=== PATIENT | female | born 2000 | race Caucasian/White ===

== ENCOUNTER 2020-08-12 09:15 | Outpatient (REF) | payer OTHER, SELFPAY | END 2020-08-12 09:16 | disposition home or self-care (01) | LOC: HO.LAB 09:15 | PROVIDERS: Visit Provider Internal Medicine | DX: Z20.828 Contact with and (suspected) exposure to other viral communicable diseases (principal) | CPT/HCPCS: C9803; U0003 ==

== ENCOUNTER 2021-07-20 14:27 | Outpatient (REF) | payer OTHER, SELFPAY ==
[2021-07-20 14:56] LABS: COVID-19 Test Negative (Negative)
== END 2021-07-20 14:28 | disposition home or self-care (01) ==
LOC: HO.LAB 14:27
PROVIDERS: Visit Provider Internal Medicine
DX: Z20.822 Contact with and (suspected) exposure to COVID-19 (principal)
CPT/HCPCS: 36415; 87635; C9803

== ENCOUNTER 2021-10-18 09:53 | Outpatient (REF) | payer OTHER, SELFPAY ==
[2021-10-18 13:37] LABS: Binax Internal Control QC Valid; Binax Now Covid-19 Ag Negative (Negative)
== END 2021-10-18 09:54 | disposition home or self-care (01) ==
LOC: HO.LAB 09:53
PROVIDERS: Visit Provider Internal Medicine
DX: Z20.822 Contact with and (suspected) exposure to COVID-19 (principal)
CPT/HCPCS: C9803

== ENCOUNTER 2021-10-21 12:42 | Outpatient (REF) | payer OTHER, SELFPAY ==
[2021-10-21 13:31] LABS: Binax Internal Control QC Valid; Binax Lot number: 9864; Binax Now Covid-19 Ag Positive (Negative)
== END 2021-10-21 12:43 | disposition home or self-care (01) ==
LOC: HO.LAB 12:42
PROVIDERS: Visit Provider Internal Medicine
DX: Z20.822 Contact with and (suspected) exposure to COVID-19 (principal)
CPT/HCPCS: C9803

== ENCOUNTER 2022-01-25 15:03 | Outpatient (REF) | payer OTHER, SELFPAY ==
[2022-01-25 16:00] LABS: COVID-19 Test Negative (Negative)
== END 2022-01-25 15:04 | disposition home or self-care (01) ==
LOC: HO.LAB 15:03
PROVIDERS: Visit Provider Internal Medicine
DX: Z20.822 Contact with and (suspected) exposure to COVID-19 (principal)
CPT/HCPCS: 87635; C9803

== ENCOUNTER 2022-03-22 18:26 | Emergency (ER) | payer OTHER, SELFPAY ==
--- NOTE | ~2022-03-22 | XR_ITS ---
EXAMINATION: XR CHEST CLINICAL INFORMATION: Chest pain COMPARISON: None TECHNIQUE: 2 views of the chest were obtained. FINDINGS: The heart and mediastinum are normal. No mass or adenopathy. No edema. The lungs are clear. No consolidation, effusion or pneumothorax. Normal lung volumes. Normal gas pattern without free air or obstruction. No fracture. XR/XR chest 2V IMPRESSION: No acute cardiopulmonary process detected.
[2022-03-22 19:04] VITALS: BP 126/68; PULSE 93; RESP 18; TEMP 36.6; O2SAT 98; BMI 39.6
[2022-03-22 19:55] LABS: MANUAL DIFF FLAG NO
[2022-03-22 19:56] LABS: Basophils Percent Auto 0.2 % (0-2); Eosinophils Absolute Auto 0.1 X10*3/uL (0.0-0.4); Eosinophils Percent Auto 0.9 % (0-4); Hematocrit 41.7 % (37.0-47.0); Hemoglobin 13.5 g/dl (12.0-16.0); Imm Gran Abs Auto 0.02 X10*3/uL (0.00-0.03); Imm Gran Pct Auto 0.2 % (0.0-0.4); Lymphocytes Absolute Auto 2.7 X10*3/uL (1.2-4.9); Lymphocytes Percent Auto 31.2 % (20-40); Mean Corpuscular HGB Conc 32.4 g/dl (31.0-35.0); Mean Corpuscular Hemoglobin 28.2 pg (27.0-33.0); Mean Corpuscular Volume 87.1 fL (80.0-98.0); Mean Platelet Volume 10.6 fL (9.4-12.3); Monocytes Absolute Auto 0.6 X10*3/uL (0.1-1.2); Monocytes Percent Auto 6.9 % (2-11); Neutrophils Absolute Auto 5.2 x10*3/uL (2.0-8.3); Neutrophils Percent Auto 60.6 % (45-73); Platelet Count 281 X10*3/uL (160-400); Red Blood Count 4.79 X10*6/uL (4.20-5.50); Red Cell Distribution Width 13.4 % (11.0-16.0); White Blood Count 8.5 X10*3/uL (4.8-10.8)
[2022-03-22 19:58] LABS: Appearance Urine CLEAR; Color Urine YELLOW; Glucose Urine UA NEG (NEG); Leukocyte Esterase Urine NEG (NEG); Nitrite Urine NEG (NEG); Specific Gravity - Urine >= 1.030 (1.005-1.025); Urine Blood NEG (NEG); Urine Ketones 5 MG/DL (NEG); Urine Protein NEG (NEG-TRACE)
[2022-03-22 19:59] LABS: UPreg QC Valid YES; Urine Pregnancy NEGATIVE (NEGATIVE)
--- NOTE | 2022-03-22 19:59 | ED_ITS ---
HPI - General Adult General Chief complaint: General Medical Stated complaint: lump under breast right side and pain Time Seen by Provider: 03/22/22 19:29 Source: patient Mode of arrival: ambulatory Limitations: no limitations History of Present Illness HPI narrative: 21-year-old female previously healthy here with reports of bump to right chest wall x 2 weeks. no fevers, chills, shortness of breath, cough. No recent flu-like symptoms. Patient tells me she was seen at [facility] and told she has chest wall inflammation. Patient here for continued symptoms. Related Data Allergies Allergy/AdvReac Type Severity Reaction Status Date / Time No Known Allergies Allergy Verified 03/22/22 19:04 Review of Systems Review of Systems: Yes all other systems are reviewed and are negative Constitutional: Constitutional: Reports no additional constitutional complaints, Denies body ache(s), Denies chills, Denies fever(s), Denies headache(s) and Denies weakness Eyes: Eyes: Reports no additional eye complaints and Denies change in vision ENT: Reports system reviewed and no additional complaints, except as documented, Denies dizziness, Denies headache(s), Denies nasal congestion, Denies nasal discharge and Denies neck pain Cardiovascular: Cardiovascular: Reports no additional cardiovascular complaints, Denies chest pain, Denies leg edema and Denies dyspnea Respiratory: Respiratory: Reports no additional respiratory complaints, Denies cough and Denies dyspnea Gastrointestinal: Gastrointestinal: Reports no additional gastrointestinal complaints, Denies abdominal pain, Denies diarrhea, Denies nausea and Denies vomiting Genitourinary: Genitourinary: Reports no additional female genitourinary complaints and Denies urinary incontinence Musculoskeletal: Musculoskeletal: Reports no additional musculoskeletal complaints, Denies back pain, Denies arthralgias, Denies joint swelling, Denies neck pain, Denies numbness and Denies tingling Integumentary/Breasts: Skin/Breast: Reports system reviewed and no additional complaints, except as docu and Denies rash Neurologic: Reports system reviewed and no additional complaints, except as documented, Denies dizziness, Denies headache(s), Denies numbness, Denies tingling and Denies weakness PMFSH Past Medical History Attestation statement: The following information was validated with the patient. Source: old records reviewed and nursing notes reviewed Social History Social History Advance Directives: No Advance Directives Information Provided: No Physical Exam ED Vital Signs: Vital Signs - 24 hr 03/22/22 19:04 Temperature 97.9 F Pulse Rate 93 Respiratory Rate 18 Blood Pressure 126/68 Pulse Oximetry 98 Oxygen Delivery Method Room Air BMI result Body Mass Index 39.6 Const General: cooperative, healthy appearing, comfortable and no acute distress Orientation/consciousness: patient oriented x3 Limitations: no limitations HENMT Head: Yes normal to inspection Ears: hearing grossly normal bilaterally General nose exam: Normal external nose present Face and sinus: Yes normal facial exam Mouth: Normal oral and palatal mucosa present Eyes General: appearance normal, both eyes and all related structures Pupils: Equal, round and reactive pupils present Neck Neck: Yes normal visual inspection Chest Chest palpation & inspection: normal inspection of the chest Breast/axilla palpation: axillary lymphadenopathy right pectoral (anterior) adenopathy (single <1cm-tender, mobile , firm-no erythema/fluctuance/induration) Neuro General: patient oriented x3 Cranial nerves: Yes Equal, round and reactive pupils present Course Course Course Narrative: 21 yo female here with bump to right chest wall x 2 weeks with no other complaints. On exam patient has single node that is tender, firm, mobile and <1cm. NO erythema/warmth or fluctuance or induration. No obvious soft tissue infections on exam. No recent flu like symptoms, weight loss, night sweats concerning for malignancy. Patient denies breast lumps/lesions or tenderness. No family history of breast cancer. Will check labs, CXR. if normal close outpatient observation by PCP Reevaluation(s) Reevaluation #1: Labs are unremarkable. Chest x-ray shows no acute finding. Patient should monitor the site and follow up with her primary care doctor within 2 weeks for resolution. Reviewed worrisome signs and symptoms such as fever, weight loss, night sweats and when to return to the emergency department. Comfortable discharge home. Time: 20:50 Medical Decision Making Medical Records Medical records reviewed: Yes I reviewed the patient's medical records. Lab Data Result diagrams: 03/22/22 19:41 03/22/22 19:41 Labs: Lab Results 03/22/22 03/22/22 03/22/22 Range/Units 19:41 19:41 19:41 WBC 8.5 (4.8-10.8) X10*3/uL RBC 4.79 (4.20-5.50) X10*6/uL Hgb 13.5 (12.0-16.0) g/dl Hct 41.7 (37.0-47.0) % MCV 87.1 (80.0-98.0) fL MCH 28.2 (27.0-33.0) pg MCHC 32.4 (31.0-35.0) g/dl RDW 13.4 (11.0-16.0) % Plt Count 281 (160-400) X10*3/uL MPV 10.6 (9.4-12.3) fL Immature Gran % (Auto) 0.2 (0.0-0.4) % Neut % (Auto) 60.6 (45-73) % Lymph % (Auto) 31.2 (20-40) % [place] % (Auto) 6.9 (2-11) % Eos % (Auto) 0.9 (0-4) % Baso % (Auto) 0.2 (0-2) % Lymph # (Auto) 2.7 (1.2-4.9) X10*3/uL [place] # (Auto) 0.6 (0.1-1.2) X10*3/uL Eos # (Auto) 0.1 (0.0-0.4) X10*3/uL Baso # (Auto) 0.0 (0.0-0.2) X10*3/uL Abs Immat Gran (auto) 0.02 (0.00-0.03) X10*3/uL Absolute Neuts (auto) 5.2 (2.0-8.3) x10*3/uL Absolute Nucleated RBC 0.000 (0.0-0.012) X10*3/uL Nucleated RBC % (auto) 0.0 (0.0-0.2) /100WBC Sodium 140 (135-145) mmol/L Potassium 3.8 (3.3-5.1) mmol/L Chloride 104 (96-108) mmol/L Carbon Dioxide 28 (22-29) mmol/L Anion Gap 12 (12-20) BUN 13 (9-16) mg/dL Creatinine 0.77 (0.5-1.4) mg/dL Estim Creat Clear Calc 120.8 Estimated GFR > 60 Random Glucose 80 (60-115) mg/dL Calcium 9.3 (8.4-10.2) mg/dL Urine Color YELLOW Urine Appearance CLEAR Urine pH 6.0 (5.0-8.0) Ur Specific [place] >= 1.030 H (1.005-1.025) Urine Protein NEG (NEG-TRACE) MG/DL Urine Glucose (UA) NEG (NEG) MG/DL Urine Ketones 5 (NEG) MG/DL Urine Blood NEG (NEG) Urine Nitrite NEG (NEG) Ur Leukocyte Esterase NEG (NEG) Urine Test (NEGATIVE) 03/22/22 Range/Units 19:41 WBC (4.8-10.8) X10*3/uL RBC (4.20-5.50) X10*6/uL Hgb (12.0-16.0) g/dl Hct (37.0-47.0) % MCV (80.0-98.0) fL MCH (27.0-33.0) pg MCHC (31.0-35.0) g/dl RDW (11.0-16.0) % Plt Count (160-400) X10*3/uL MPV (9.4-12.3) fL Immature Gran % (Auto) (0.0-0.4) % Neut % (Auto) (45-73) % Lymph % (Auto) (20-40) % [place] % (Auto) (2-11) % Eos % (Auto) (0-4) % Baso % (Auto) (0-2) % Lymph # (Auto) (1.2-4.9) X10*3/uL [place] # (Auto) (0.1-1.2) X10*3/uL Eos # (Auto) (0.0-0.4) X10*3/uL Baso # (Auto) (0.0-0.2) X10*3/uL Abs Immat Gran (auto) (0.00-0.03) X10*3/uL Absolute Neuts (auto) (2.0-8.3) x10*3/uL Absolute Nucleated RBC (0.0-0.012) X10*3/uL Nucleated RBC % (auto) (0.0-0.2) /100WBC Sodium (135-145) mmol/L Potassium (3.3-5.1) mmol/L Chloride (96-108) mmol/L Carbon Dioxide (22-29) mmol/L Anion Gap (12-20) BUN (9-16) mg/dL Creatinine (0.5-1.4) mg/dL Estim Creat Clear Calc Estimated GFR Random Glucose (60-115) mg/dL Calcium (8.4-10.2) mg/dL Urine Color Urine Appearance Urine pH (5.0-8.0) Ur Specific [place] (1.005-1.025) Urine Protein (NEG-TRACE) MG/DL Urine Glucose (UA) (NEG) MG/DL Urine Ketones (NEG) MG/DL Urine Blood (NEG) Urine Nitrite (NEG) Ur Leukocyte Esterase (NEG) Urine Test NEGATIVE (NEGATIVE) Imaging Data Chest x-ray: Attestation: I personally reviewed and interpreted this imaging study as follows: Radiologist's impression: Launch?Image [place] [id number] XRay Report Signed Patient: Dmitry Parker MR#: [id number] : 09/12/2004 Acct:[id number] Age/Sex: 17 / M ADM Date: 03/22/22 Loc: .ED Attending Dr: Ordering Physician: Sergey Granda MD Date of Service: 03/22/22 Procedure(s): XR hand RT min 3V Accession Number(s): [id number] cc: Sergey Granda MD~ EXAMINATION: XR HAND, RIGHT CLINICAL INFORMATION: Pain and limited range of motion? COMPARISON: None? TECHNIQUE: PA, lateral, and oblique views of the right hand. FINDINGS: There is abnormal soft tissue swelling overlying the fifth metacarpal. No radiopaque foreign body or soft tissue gas. The bones are normally mineralized without fracture or dislocation.? XR/XR hand RT min 3V IMPRESSION: Abnormal soft tissue swelling over lateral aspect of right hand. Discharge Plan Discharge Clinical Impression: Axillary adenopathy Patient Disposition: Home, Self-Care Instructions: Lymphadenopathy (ED) Additional Instructions: you need to be seen by your primary care doctor within 2 weeks for recheck seek care for any fevers, weight loss, night sweats, breast lump or swelling warm compresses Motrin as needed Referrals: Physician,Unknown J [Primary Care Provider] - 2 weeks ( primary care without fail)
[2022-03-22 20:09] LABS: Anion Gap 12 (12-20); Blood Urea Nitrogen 13 mg/dL (9-16); Calcium 9.3 mg/dL (8.4-10.2); Carbon Dioxide 28 mmol/L (22-29); Chloride 104 mmol/L (96-108); Creatinine Clr Calc Pharmacy 120.8; Estimated Glomerular Filt Rate > 60; Glucose Random 80 mg/dL (60-115); Potassium 3.8 mmol/L (3.3-5.1); Sodium 140 mmol/L (135-145)
== END 2022-03-22 21:03 | disposition home or self-care (01) ==
PROVIDERS: Nurse Practitioner Family; Emergency Provider Emergency Medicine Emergency Medical Services
DX: R59.0 Localized enlarged lymph nodes (principal)
CPT/HCPCS: 36415; 71046; 80048; 81003; 81025; 85025; 99282; 99283

== ENCOUNTER 2022-05-03 14:53 | Emergency (ER) | payer OTHER, SELFPAY ==
[2022-05-03 16:43] VITALS: BP 111/65; PULSE 63; RESP 18; TEMP 36.7; O2SAT 99; BMI 39.9
--- NOTE | 2022-05-03 22:12 | ED_ITS ---
HPI - Nausea/Vomiting/Diarrhea General Chief complaint: Abdominal Pain Stated complaint: fever Time Seen by Provider: 05/03/22 18:17 Source: patient Mode of arrival: ambulatory Limitations: no limitations History of Present Illness HPI Narrative: Patient complaining of nausea abdominal cramps and diarrhea for last 2 weeks noticed had low-grade fever also patient has on a diarrhea 2 times a day which is watery no vomiting has some abdominal cramping no chills no running nose no cough Related Data Previous Rx's Medication Instructions Recorded loperamide 2 mg capsule (Imodium 2 mg PO Q6H PRN loose stool #10 05/04/22 A-D) caps Allergies Allergy/AdvReac Type Severity Reaction Status Date / Time No Known Allergies Allergy Verified 05/03/22 16:43 Review of Systems Review of Systems: Yes all other systems are reviewed and are negative [facility] Social History Social History Advance Directives: No Advance Directives Information Provided: No Physical Exam Vital Signs: Vital Signs: Last Vital Signs Temp 98.1 F 05/03/22 16:43 Pulse 68 05/04/22 00:00 Resp 18 05/04/22 00:00 BP 115/70 05/04/22 00:00 Pulse Ox 100 05/04/22 00:00 O2 Del Method 05/04/22 00:00 BMI result Body Mass Index 39.9 Appearance: Alert. Oriented X3. No acute distress. Eyes: PERRLA, No Nystagmus ENT: Pharynx normal. Oral Mucosa moist Neck: Normal inspection. Neck supple. CVS: Normal heart rate and rhythm. Pulses normal. Respiratory: No respiratory distress. Equal air entry bilateral, no wheezing/rales/rhonchi Abdomen: Soft and nontender. Bowel sounds are present, no mass palpable, no CVA tenderness Skin: Skin warm and dry. Normal skin color. Normal skin turgor. Extremities: No lower extremity edema. No calf tenderness Neuro: Oriented X 3. No motor deficit. MDM - Nausea/Vomiting/Diarrhea MDM Narrative Medical decision making narrative: Patient clinically stable nonspecific complaints very mild will get UA tested COVID is neg UA is negative patient is not taking p.o. fluid to discharge patient ho me on Imodium Lab Data Attestation: I reviewed the patient's lab results. Labs: Lab Results 05/03/22 05/04/22 05/04/22 Range/Units 22:56 00:19 00:20 Urine Color YELLOW Urine Appearance HAZY Urine pH 6.0 (5.0-8.0) Ur Specific [place] 1.025 (1.005-1.025) Urine Protein TRACE (NEG-TRACE) MG/DL Urine Glucose (UA) NEG (NEG) MG/DL Urine Ketones NEG (NEG) MG/DL Urine Blood NEG (NEG) Urine Nitrite NEG (NEG) Ur Leukocyte Esterase NEG (NEG) Urine Test NEGATIVE (NEGATIVE) COVID-19 (GREGG) Negative (Negative) COVID-19 Clin Com See Note Discharge Plan Discharge Clinical Impression: Gastroenteritis Patient Disposition: Home, Self-Care Instructions: Gastroenteritis (ED) Additional Instructions: Drink plenty of fluids Imodium as advised for severe diarrhea Follow with PCP Prescriptions: New loperamide [Imodium A-D] 2 mg capsule 2 mg PO Q6H PRN (Reason: loose stool) Qty: 10 0RF
[2022-05-03] MEDS: Ondansetron ODT 4 MG TAB.RAPDIS TRANSLINGU (22:52)
[2022-05-03] MEDS: Dicyclomine HCl 10 MG CAPSULE 20 MG PO (22:52)
[2022-05-03 23:27] VITALS: RESP 18
[2022-05-03 23:28] LABS: COVID-19 Test Negative (Negative); IDNOW Serial# 16C4AD1C
[2022-05-04] VITALS: BP 115/70; PULSE 68; RESP 18; O2SAT 100
[2022-05-04 00:40] LABS: Appearance Urine HAZY; Color Urine YELLOW; Glucose Urine UA NEG (NEG); Leukocyte Esterase Urine NEG (NEG); Nitrite Urine NEG (NEG); Specific Gravity - Urine 1.025 (1.005-1.025); Urine Blood NEG (NEG); Urine Ketones NEG (NEG); Urine Protein TRACE MG/DL (NEG-TRACE)
[2022-05-04 00:41] LABS: UPreg QC Valid YES; Urine Pregnancy NEGATIVE (NEGATIVE)
== END 2022-05-04 01:09 | disposition home or self-care (01) ==
PROVIDERS: Emergency Provider Internal Medicine
DX: K52.9 Noninfective gastroenteritis and colitis, unspecified (principal); Z20.822 Contact with and (suspected) exposure to COVID-19
CPT/HCPCS: 81003; 81025; 87635; 99283; 99284

== ENCOUNTER 2022-09-19 16:15 | Emergency (ER) | payer OTHER, SELFPAY ==
--- NOTE | ~2022-09-19 | XR_ITS ---
EXAMINATION: XR CHEST CLINICAL INFORMATION: Chest pain COMPARISON: None TECHNIQUE: 2 views of the chest were obtained. FINDINGS: No significant abnormality is noted involving the heart, lungs, mediastinum, bony thorax or soft tissues. XR/XR chest 2V IMPRESSION: Unremarkable examination.
[2022-09-19 17:38] VITALS: BP 128/70; PULSE 76; RESP 18; TEMP 36.8; O2SAT 100; BMI 39.6
--- NOTE | 2022-09-19 17:42 | ED_ITS ---
HPI - Chest Pain General Chief Complaint: Fever <EVERTON Patton - Last Filed: 09/19/22 17:45> Stated Complaint: Chest pain/fever <EVERTON Patton - Last Filed: 09/19/22 17:45> Time Seen by Provider: 09/19/22 18:47 <EVERTON Patton - Last Filed: 09/19/22 17:45> Source: patient and family (Mother) <Delilah Harrington MD - Last Filed: 09/19/22 21:07> Mode of arrival: ambulatory <Delilah Harrington MD - Last Filed: 09/19/22 21:07> Limitations: no limitations <Delilah Harrington MD - Last Filed: 09/19/22 21:07> History of Present Illness HPI narrative: 22-year-old female came in for evaluation of right-sided chest pain for 1 week, patient describes the pain as constant pain is worse with taking a deep breath or twisting her body, no relieving factor, pain is moderate 5/10, no radiation, no lower extremity swelling, patient just traveled from [place] recently, no history of PE or DVT in the past. No upper respiratory symptoms. <Delilah Harrington MD - Last Filed: 09/19/22 21:07> Related Data Home Medications: Previous Rx's Medication Instructions Recorded loperamide 2 mg capsule (Imodium 2 mg PO Q6H PRN loose stool #10 05/04/22 A-D) caps ibuprofen 100 mg/5 mL oral 200 mg (10 mL) PO Q6H PRN pain 09/19/22 suspension (Children's Motrin) #120 mL <EVERTON Patton - Last Filed: 09/19/22 17:45> Allergies/Adverse Reactions: Allergies Allergy/AdvReac Type Severity Reaction Status Date / Time No Known Allergies Allergy Verified 05/03/22 16:43 <EVERTON Patton - Last Filed: 09/19/22 17:45> Review of Systems Review of Systems: All other systems are reviewed and are negative Constitutional: Reports as per HPI and Reports no additional constitutional complaints Eyes: Reports as per HPI and Reports no additional eye complaints Reports system reviewed and no additional complaints, except as documented Cardiovascular: Reports as per HPI and Reports no additional cardiovascular complaints Respiratory: Reports as per HPI and Reports no additional respiratory complaints Gastrointestinal: Reports as per HPI and Reports no additional gastrointestinal complaints Genitourinary: Reports no additional female genitourinary complaints Musculoskeletal: Reports no additional musculoskeletal complaints Skin/Breast: Reports system reviewed and no additional complaints, except as docu Psychiatric: Reports no additional psychiatric complaints Endocrine: Reports no additional endocrine complaints Hematologic/Lymphatic: Reports no additional hematologic/lymphatic complaints Allergic/Immunologic: Reports no additional allergic/immunologic complaints Reports system reviewed and no additional complaints, except as documented and Reports Abnormal speech present <Delilah Harrington MD - Last Filed: 09/19/22 21:07> [facility] Social History Social History: Social History Advance Directives: No Advance Directives Information Provided: No <EVERTON Patton - Last Filed: 09/19/22 17:45> Physical Exam Vital Signs: Vital Signs: Last Vital Signs Temp 98.3 F 09/19/22 17:38 Pulse 73 09/19/22 18:53 Resp 18 09/19/22 18:53 BP 105/65 09/19/22 18:53 Pulse Ox 100 09/19/22 18:53 O2 Del Method 09/19/22 18:53 BMI result Body Mass Index 39.6 <EVERTON Patton - Last Filed: 09/19/22 17:45> Vital Signs: Last Vital Signs Temp 98.3 F 09/19/22 17:38 Pulse 73 09/19/22 18:53 Resp 18 09/19/22 18:53 BP 105/65 09/19/22 18:53 Pulse Ox 100 09/19/22 18:53 O2 Del Method 09/19/22 18:53 BMI result Body Mass Index 39.6 Vital signs have been reviewed as appeared to be correct. Blood pressure normal. Heart rate normal. Respiration rate normal. Temperature normal. Oxygen saturation normal. <Delilah Harrington MD - Last Filed: 09/19/22 21:07> Appearance: Alert. Oriented X3. No acute distress. Head: Normal external exam. Normocephalic. Atraumatic. No [place] signs noted. No raccoon eyes noted Eyes: PERRLA. EOMI. Conjunctiva and sclera normal. Eyelids normal. ENT: TM's Normal. Pharynx normal. Uvula midline. Moist mucous membranes. No trismus noted. No drooling noted. No muffled voice noted. Neck: Normal inspection. Neck supple. FROM. No adenopathy. Thyroid Normal. No meningeal signs. No neck mass noted. CVS: Normal heart rate and rhythm. Heart sound normal. No murmurs noted. Pulses normal throughout. Respiratory: No respiratory distress. Painless inspiration. Breath sounds normal. No wheezes/rales/rhonchi noted. Right chest wall point of reproducible tenderness. No accessory muscle usage noted or decreased air movement noted. Abdomen: Soft and nontender. Bowel sounds normal in all 4 quadrants. No distention noted. No organomegaly noted. No visible injury noted. Back: No CVA tenderness. Full range of motion noted. Skin: Skin warm and dry. Normal skin color. Normal skin turgor. No rashes/lesions/lacerations noted. Extremities: No lower extremity edema. Extremities exhibit normal range of motion. Extremities nontender. Neuro: Oriented X 3. Cranial nerve exam: II-XII are grossly intact No motor deficit. No sensory deficit. Reflexes normal. <Delilah Harrington MD - Last Filed: 09/19/22 21:07> Course Course Course Narrative: 17:45pm - 22yoF c No Sig PMHx who recently traveled to [place] and returned 1 week ago is presenting to the ER with midsternal chest pain with associated shortness of breath and fevers for the past week. Denies any other recent travel. Is not on control. Denies any surgery or history of DVT or PE or hypercoagulation disorder or any estrogen usage. Denies any dizziness, ear pain, sore throat, cough, palpitations, abdominal pain, leg swelling or any other symptoms complaints or concerns at this time. Plan: Labs, EKG, chest x-ray. Patient is stable vital signs are stable. Patient will be sent back to the waiting room for further evaluation treatment emergency department. <EVERTON Patton - Last Filed: 09/19/22 17:45> Reevaluation(s) Reevaluation #1: Right-sided chest wall pain with point of reproducible tenderness, patient at low risk for PE was negative D-dimer, unremarkable chest x-ray and EKG, stable vital signs with no tachypnea or hypoxia, will reassure the patient use NSAIDs p.r.n. pain. <Delilah Harrington MD - Last Filed: 09/19/22 21:07> Time: 21:03 <Delilah Harrington MD - Last Filed: 09/19/22 21:07> Medical Decision Making Differential Diagnosis Differential Diagnoses: The differential diagnosis associated with the presentation includes (PE/chest wall pain/cardiac related pain/pneumonia.) <Delilah Harrington MD - Last Filed: 09/19/22 21:07> Lab Data Result Diagrams: : 09/19/22 18:29 09/19/22 18:29 <EVERTON Patton - Last Filed: 09/19/22 17:45> Labs: Lab Results 09/19/22 09/19/22 09/19/22 Range/Units 18:17 18:29 18:29 PT 11.2 (10.0-13.1) SEC INR 1.0 (0.9-1.1) D-Dimer High Sensitivty < 150 NG/ML Sodium 140 (135-145) mmol/L Potassium 4.0 (3.3-5.1) mmol/L Chloride 106 (96-108) mmol/L Carbon Dioxide 24 (22-29) mmol/L Anion Gap 14 (12-20) BUN 11 (9-16) mg/dL Creatinine 0.79 (0.5-1.4) mg/dL Estim Creat Clear Calc 116.7 Estimated GFR > 60 Random Glucose 90 (60-115) mg/dL Calcium 9.7 (8.4-10.2) mg/dL Magnesium 1.9 (1.6-2.6) mg/dL Total Bilirubin 0.3 (0.0-1.0) mg/dL AST 26 (5-31) U/L ALT 29 (0-31) U/L Alkaline Phosphatase 103 (39-117) U/L Troponin I High Sens (<3.5-17.0) ng/L B-Natriuretic Peptide (<100) pg/mL Total Protein 8.1 H (6.5-8.0) g/dL Albumin 4.4 (3.5-5.0) g/dL Beta HCG, Quant mIU/mL Influenza Type A (PCR) NEGATIVE (Negative) Influenza Type B (PCR) NEGATIVE (Negative) RSV RNA Qual (PCR) NEGATIVE (Negative) SARS-CoV-2 RNA (RT-PCR) NEGATIVE (Negative) 09/19/22 09/19/22 09/19/22 Range/Units 18:29 18:34 18:34 PT (10.0-13.1) SEC INR (0.9-1.1) D-Dimer High Sensitivty NG/ML Sodium (135-145) mmol/L Potassium (3.3-5.1) mmol/L Chloride (96-108) mmol/L Carbon Dioxide (22-29) mmol/L Anion Gap (12-20) BUN (9-16) mg/dL Creatinine (0.5-1.4) mg/dL Estim Creat Clear Calc Estimated GFR Random Glucose (60-115) mg/dL Calcium (8.4-10.2) mg/dL Magnesium (1.6-2.6) mg/dL Total Bilirubin (0.0-1.0) mg/dL AST (5-31) U/L ALT (0-31) U/L Alkaline Phosphatase (39-117) U/L Troponin I High Sens < 3.5 (<3.5-17.0) ng/L B-Natriuretic Peptide < 10 (<100) pg/mL Total Protein (6.5-8.0) g/dL Albumin (3.5-5.0) g/dL Beta HCG, Quant < 2 mIU/mL Influenza Type A (PCR) (Negative) Influenza Type B (PCR) (Negative) RSV RNA Qual (PCR) (Negative) SARS-CoV-2 RNA (RT-PCR) (Negative) <EVERTON Patton - Last Filed: 09/19/22 17:45> Lab Results 09/19/22 09/19/22 09/19/22 Range/Units 18:17 18:29 18:29 PT 11.2 (10.0-13.1) SEC INR 1.0 (0.9-1.1) D-Dimer High Sensitivty < 150 NG/ML Sodium 140 (135-145) mmol/L Potassium 4.0 (3.3-5.1) mmol/L Chloride 106 (96-108) mmol/L Carbon Dioxide 24 (22-29) mmol/L Anion Gap 14 (12-20) BUN 11 (9-16) mg/dL Creatinine 0.79 (0.5-1.4) mg/dL Estim Creat Clear Calc 116.7 Estimated GFR > 60 Random Glucose 90 (60-115) mg/dL Calcium 9.7 (8.4-10.2) mg/dL Magnesium 1.9 (1.6-2.6) mg/dL Total Bilirubin 0.3 (0.0-1.0) mg/dL AST 26 (5-31) U/L ALT 29 (0-31) U/L Alkaline Phosphatase 103 (39-117) U/L Troponin I High Sens (<3.5-17.0) ng/L B-Natriuretic Peptide (<100) pg/mL Total Protein 8.1 H (6.5-8.0) g/dL Albumin 4.4 (3.5-5.0) g/dL Beta HCG, Quant mIU/mL Influenza Type A (PCR) NEGATIVE (Negative) Influenza Type B (PCR) NEGATIVE (Negative) RSV RNA Qual (PCR) NEGATIVE (Negative) SARS-CoV-2 RNA (RT-PCR) NEGATIVE (Negative) 09/19/22 09/19/22 09/19/22 Range/Units 18:29 18:34 18:34 PT (10.0-13.1) SEC INR (0.9-1.1) D-Dimer High Sensitivty NG/ML Sodium (135-145) mmol/L Potassium (3.3-5.1) mmol/L Chloride (96-108) mmol/L Carbon Dioxide (22-29) mmol/L Anion Gap (12-20) BUN (9-16) mg/dL Creatinine (0.5-1.4) mg/dL Estim Creat Clear Calc Estimated GFR Random Glucose (60-115) mg/dL Calcium (8.4-10.2) mg/dL Magnesium (1.6-2.6) mg/dL Total Bilirubin (0.0-1.0) mg/dL AST (5-31) U/L ALT (0-31) U/L Alkaline Phosphatase (39-117) U/L Troponin I High Sens < 3.5 (<3.5-17.0) ng/L B-Natriuretic Peptide < 10 (<100) pg/mL Total Protein (6.5-8.0) g/dL Albumin (3.5-5.0) g/dL Beta HCG, Quant < 2 mIU/mL Influenza Type A (PCR) (Negative) Influenza Type B (PCR) (Negative) RSV RNA Qual (PCR) (Negative) SARS-CoV-2 RNA (RT-PCR) (Negative) <Delilah Harrington MD - Last Filed: 09/19/22 21:07> Independent Interpretation I performed an independent interpretation of an: EKG (Normal sinus rhythm at 72 beats per minute, normal axis deviation, normal intervals, no ST-T changes.) <Delilah Harrington MD - Last Filed: 09/19/22 21:07> Discharge Plan Discharge Clinical Impression: Acute chest wall pain <EVERTON Patton - Last Filed: 09/19/22 17:45> Patient Disposition: Home, Self-Care <EVERTON Patton - Last Filed: 09/19/22 17:45> Instructions: Chest Wall Pain (ED) <EVERTON Patton - Last Filed: 09/19/22 17:45> Prescriptions: New ibuprofen [Children's Motrin] 100 mg/5 mL suspension 200 mg PO Q6H PRN (Reason: pain) Qty: 120 0RF No Action loperamide [Imodium A-D] 2 mg capsule 2 mg PO Q6H PRN (Reason: loose stool) Qty: 10 0RF <EVERTON Patton - Last Filed: 09/19/22 17:45> Referrals: Physician,Unknown J [Primary Care Provider] - <EVERTON Patton - Last Filed: 09/19/22 17:45> Stand Alone Forms: Work/School Release <EVERTON Patton - Last Filed: 09/19/22 17:45>
--- NOTE | 2022-09-19 17:44 | ECG_ITS ---
Test Reason : CP Blood Pressure : / mmHG Vent. Rate : 072 BPM Atrial Rate : 072 BPM P-R Int : 140 ms QRS Dur : 074 ms QT Int : 360 ms P-R-T Axes : 055 065 032 degrees QTc Int : 394 ms Normal sinus rhythm with sinus arrhythmia Normal ECG No previous ECGs available Referred By: Genesis Zhang Electronically Signed By:MICHAEL GIORDANO
[2022-09-19 18:51] LABS: Prothrombin Time 11.2 SEC (10.0-13.1)
[2022-09-19 18:53] VITALS: BP 105/65; PULSE 73; RESP 18; O2SAT 100
[2022-09-19 19:06] LABS: Troponin-I High Sensitivity < 3.5 ng/L (<3.5-17.0)
[2022-09-19 19:08] LABS: Alanine Aminotransferase 29 U/L (0-31); Albumin Level 4.4 g/dL (3.5-5.0); Alkaline Phosphatase 103 U/L (39-117); Anion Gap 14 (12-20); Aspartate Amino Transferase 26 U/L (5-31); Bilirubin Total 0.3 mg/dL (0.0-1.0); Blood Urea Nitrogen 11 mg/dL (9-16); Calcium 9.7 mg/dL (8.4-10.2); Carbon Dioxide 24 mmol/L (22-29); Chloride 106 mmol/L (96-108); Creatinine Clr Calc Pharmacy 116.7; Estimated Glomerular Filt Rate > 60; Glucose Random 90 mg/dL (60-115); HCG Quantitative < 2 mIU/mL; Magnesium 1.9 mg/dL (1.6-2.6); Sodium 140 mmol/L (135-145); Total Protein 8.1 g/dL (6.5-8.0)
[2022-09-19 19:20] LABS: Influenza A PCR NEGATIVE (Negative); Influenza B PCR NEGATIVE (Negative); Resp Syncy Virus RNA Qual PCR NEGATIVE (Negative); SARS COV2 PCR INHOUSE NEGATIVE (Negative)
[2022-09-19 20:15] LABS: D Dimer High Sensitivity < 150 NG/ML
[2022-09-19 20:21] LABS: B Type Natriuretic Peptide < 10 pg/mL (<100)
[2022-09-19 22:01] LABS: MANUAL DIFF FLAG NO
[2022-09-19 22:02] LABS: Basophils Percent Auto 0.4 % (0-2); Eosinophils Absolute Auto 0.1 X10*3/uL (0.0-0.4); Eosinophils Percent Auto 0.9 % (0-4); Hematocrit 40.2 % (37.0-47.0); Hemoglobin 13.1 g/dl (12.0-16.0); Imm Gran Abs Auto 0.02 X10*3/uL (0.00-0.03); Imm Gran Pct Auto 0.2 % (0.0-0.4); Lymphocytes Absolute Auto 2.7 X10*3/uL (1.2-4.9); Lymphocytes Percent Auto 31.3 % (20-40); Mean Corpuscular HGB Conc 32.6 g/dl (31.0-35.0); Mean Corpuscular Hemoglobin 27.6 pg (27.0-33.0); Mean Corpuscular Volume 84.8 fL (80.0-98.0); Mean Platelet Volume 10.4 fL (9.4-12.3); Monocytes Absolute Auto 0.5 X10*3/uL (0.1-1.2); Monocytes Percent Auto 5.4 % (2-11); Neutrophils Absolute Auto 5.2 x10*3/uL (2.0-8.3); Neutrophils Percent Auto 61.8 % (45-73); Platelet Count 284 X10*3/uL (160-400); Red Blood Count 4.74 X10*6/uL (4.20-5.50); White Blood Count 8.5 X10*3/uL (4.8-10.8)
[2022-09-19 22:20] LABS: B Type Natriuretic Peptide < 10 pg/mL (<100)
== END 2022-09-19 22:43 | disposition home or self-care (01) ==
PROVIDERS: Physician Assistant Medical; Emergency Provider Emergency Medicine
DX: R07.89 Other chest pain (principal); R50.9 Fever, unspecified; R06.02 Shortness of breath; Z20.822 Contact with and (suspected) exposure to COVID-19; Z79.899 Other long term (current) drug therapy
CPT/HCPCS: 0241U; 36415; 71046; 80053; 83735; 83880; 84484; 84702; 85025; 85379; 85610; 93005; 99283; 99284

== ENCOUNTER 2022-12-31 08:22 | Emergency (ER) | payer OTHER, SELFPAY ==
[2022-12-31 08:48] LABS: COVID-19 Test Negative (Negative); IDNOW Serial# BCCEAD1C
[2022-12-31 09:04] VITALS: BP 122/79; PULSE 108; RESP 16; TEMP 36.9; O2SAT 97; BMI 40.8
[2022-12-31 10:10] LABS: IDNOW Serial# 08D9AD1C; Strep A Nucleic Acid Negative (Negative)
[2022-12-31 10:14] LABS: IDNOW Serial# BCCEAD1C; Influenza A Negative (Negative); Influenza B2 Negative (Negative)
--- NOTE | 2022-12-31 10:21 | ED_ITS ---
HPI - URI/Sore Throat General Chief Complaint: Upper Respiratory Symptoms Stated Complaint: Body pain/Cold symptoms Time Seen by Provider: 12/31/22 09:15 Source: patient Mode of arrival: ambulatory Limitations: no limitations History of Present Illness HPI Narrative: 22yoF presenting to the ER with complaints of chills, fatigue, malaise, body aches, nasal congestion/rhinorrhea, sore throat, cough with clear colored sputum production, abdominal cramping, nausea and diarrhea for the past 3 days. Reports that she works at [employer] therefore is exposed to many other people and machinery. Although is unaware of any sick contacts. Denies any measured fevers, dizziness, headaches, neck pain/stiffness, trouble swallowing or breathing, changes in voice, drooling, chest pain or shortness of breath, black or bloody emesis, abdominal pain, flank pain, dysuria, hematuria, abnormal vaginal discharge, black or bloody stools or any other symptoms complaints or concerns at this time. MD elicited complaint: cough, sore throat, rhinorrhea and nasal congestion Onset (ago): day(s) (3) Consistency: constant and progressively worsening Severity: mild Description of mucous: clear, watery and yellow Able to tolerate fluids by mouth: Yes Exacerbating factors: swallowing Relieving factors: nothing Associated symptoms: chills, myalgias, rhinorrhea, nasal congestion, sore throat and cough Treatments prior to arrival: none Related Data Previous Rx's Medication Instructions Recorded loperamide 2 mg capsule (Imodium 2 mg PO Q6H PRN loose stool #10 05/04/22 A-D) caps ibuprofen 100 mg/5 mL oral 200 mg (10 mL) PO Q6H PRN pain 09/19/22 suspension (Children's Motrin) #120 mL benzonatate 100 mg capsule 100 mg PO Q6H PRN cough #14 caps 12/31/22 cyclobenzaprine 10 mg tablet 10 mg PO Q8H #14 tabs 12/31/22 oxymetazoline 0.05 % nasal spray 2 spray intranasal Q12H PRN nasal 12/31/22 (Vicks Sinex 12-Hour) congestion 3 days #22 mL Allergies Allergy/AdvReac Type Severity Reaction Status Date / Time No Known Allergies Allergy Verified 05/03/22 16:43 Review of Systems Review of Systems: Constitutional : + chills/fatigue/malaise, No Weight loss, No Fever, No Night Sweats ENT/Mouth : + sore throat/nasal congestion/rhinorrhea, No Hearing loss, No Ear Pain, No Sinus Pain, No Hoarseness, No Swallowing Difficulty Eyes: No Eye Pain, No Swelling, No Redness, No Foreign Body, No Discharge, No Vision Changes Cardiovascular : No Chest Pain, No SOB, No Dyspnea on Exertion, No Orthopnea, No Edema, No Palpitations Respiratory : + Cough, + Sputum, No Wheezing, No Smoke Exposure, No Dyspnea Gastrointestinal : + Nausea, No Vomiting, + Diarrhea, No Constipation, No abdominal Pain, No Hematochezia, No Melena Genitourinary : no irregular bleeding, No Dysuria, No Urinary Frequency, No Hematuria, No Urinary Incontinence, No Urgency, No Flank Pain, No Urinary Flow Changes, No Hesitancy Musculoskeletal : No joint pain, + Myalgias, No Joint Swelling Skin : No Skin Lesions, No rash Neuro : No Weakness, No Numbness, No Paresthesias, No Loss of Consciousness, No Dizziness, No Headache Psych : No Anxiety/Panic, No Depression, No SI/HI/AH/VH, No Social Issues, Heme/Lymph: No Bruising, No Bleeding,No Lymphadenopathy Endocrine : No Polyuria, No Polydipsia, No Temperature Intolerance Yes all other systems are reviewed and are negative [facility]LY [facility] Past Medical History Attestation statement: The following information was validated with the patient. Source: old records reviewed and nursing notes reviewed Social History Social History Advance Directives: No Advance Directives Information Provided: No Physical Exam Vital Signs: Vital Signs: Last Vital Signs Temp 98.5 F 12/31/22 09:04 Pulse 108 H 12/31/22 09:04 Resp 16 12/31/22 09:04 BP 122/79 12/31/22 09:04 Pulse Ox 97 12/31/22 09:04 O2 Del Method Room Air 12/31/22 09:04 BMI result Body Mass Index 40.8 vital signs have been reviewed as normal and appeared to be correct. Blood pressure normal. Heart rate 108. Respiration rate normal. Temperature normal. Oxygen saturation normal. Appearance: Alert. Oriented X3. No acute distress. Head: Normal external exam. Normocephalic. Atraumatic. Eyes: PERRLA. EOMI. Conjunctiva and sclera normal. Eyelids normal. ENT: EAC normal. TM's Normal. Pharynx normal. Uvula midline. Moist mucous membranes. No lesions/ulcerations or masses noted on the tongue. Normal voice. No trismus noted. No drooling noted. No muffled voice noted. Neck: Normal inspection. Neck supple. FROM. No adenopathy. Thyroid Normal. No tracheal deviation noted. No crepitus is noted. No meningeal signs. No neck mass noted. No signs of trauma noted. CVS: Normal heart rate and rhythm. Heart sound normal. Pulses normal throughout. No murmurs/rales/gallops. Respiratory: No respiratory distress. Painless inspiration. Breath sounds normal. No wheezes/rales/rhonchi noted. Chest nontender. No accessory muscle usage noted or decreased air movement noted. Abdomen: Soft and nontender. Nondistended. No guarding. No rigidity. Bowel sounds normal in all 4 quadrants. No distention noted. No organomegaly noted. No visible injury noted. No rebound tenderness. Negative Rovsing sign. Negative obturator's sign. Negative psoas sign. Negative Talavera sign. Back: No CVA tenderness. Full range of motion noted. Nontender. No signs of trauma. Patient neuro intact bilaterally and distally on all 4 extremities. Patient's reflexes intact bilaterally and distally on all 4 extremities. No rashes/lesion/induration/fluctuance or signs of infection noted. Skin: Skin warm and dry. Normal skin color. Normal skin turgor. No rashes/lesions/lacerations noted. Extremities: Extremities exhibit normal range of motion and nontender. Neuro: Oriented X 3. No motor deficit. No sensory deficit. Reflexes normal. Normal steady gait. No focal neuro deficits noted. CN's II-XII intact bilaterally? Vascular: + radial pulses. Normal cap refill. No cyanosis noted to upper extremity nails. Course Course Course Narrative: This 22yoF patient presents with symptoms suspicious for likely viral upper respiratory infection. Differential includes bacterial pneumonia, sinusitis, allergic rhinitis, influenza, bacterial pharyngitis, COVID. Do not suspect underlying cardiopulmonary process. I considered, but think unlikely, dangerous causes of this patient?s symptoms to include ACS, CHF or COPD exacerbations, pneumonia, pneumothorax. Patient is nontoxic appearing and not in need of e mergent medical intervention. Patient negative for COVID/flu and strep. No additional labs or imaging indicated. Will DC home with symptomatic treatment for viral syndrome instructions return if any new or worsening symptoms. Patient understands agrees with this plan. Medical Decision Making Lab Data MDM Lab Attestation statement: I reviewed the patient's lab results. Labs: Lab Results 12/31/22 12/31/22 12/31/22 Range/Units 08:30 09:38 09:38 COVID-19 (GREGG) Negative (Negative) COVID-19 Clin Com See Note Influenza Type A (JW) Negative (Negative) Influenza Type B (JW) Negative (Negative) Influenza A & B Note See Note S. pyogenes GrpA JW Negative (Negative) Discharge Plan Discharge Clinical Impression: Viral infection Patient Disposition: Home, Self-Care Instructions: Viral Syndrome (ED) Prescriptions: New cyclobenzaprine 10 mg tablet 10 mg PO Q8H Qty: 14 0RF benzonatate 100 mg capsule 100 mg PO Q6H PRN (Reason: cough) Qty: 14 0RF oxymetazoline [Vicks Sinex 12-Hour] 0.05 % spray,non-aerosol 2 spray intranasal Q12H PRN (Reason: nasal congestion) 3 Days Qty: 22 0RF No Action loperamide [Imodium A-D] 2 mg capsule 2 mg PO Q6H PRN (Reason: loose stool) Qty: 10 0RF ibuprofen [Children's Motrin] 100 mg/5 mL suspension 200 mg PO Q6H PRN (Reason: pain) Qty: 120 0RF Referrals: Physician,Unknown J [Primary Care Provider] - 2 days (Follow-up with your PCP as needed) Stand Alone Forms: Work/School Release
== END 2022-12-31 11:10 | disposition home or self-care (01) ==
PROVIDERS: Physician Assistant Medical; Emergency Provider Emergency Medicine
DX: B34.9 Viral infection, unspecified (principal); J02.8 Acute pharyngitis due to other specified organisms; M79.10 Myalgia, unspecified site; R05.9 Cough, unspecified; Z20.822 Contact with and (suspected) exposure to COVID-19; Z20.828 Contact with and (suspected) exposure to other viral communicable diseases
CPT/HCPCS: 87502; 87635; 87651; 99283

== ENCOUNTER 2023-09-18 19:45 | Emergency (ER) | payer MEDICAID, SELFPAY ==
--- NOTE | ~2023-09-18 | XR_ITS ---
EXAMINATION: XR CHEST CLINICAL INFORMATION: Question aspiration pneumonia COMPARISON: Chest radiographs dated 09/19/2022. TECHNIQUE: Frontal view of the chest was obtained. FINDINGS: No significant abnormality is noted involving the heart, lungs, mediastinum, bony thorax or soft tissues. Lung volumes are mildly diminished. XR/XR chest 1V IMPRESSION: Unremarkable examination.
--- NOTE | ~2023-09-18 | CT_ITS ---
EXAMINATION: CT HEAD WITHOUT CONTRAST CLINICAL INFORMATION: New onset seizure. COMPARISON: None. TECHNIQUE: Contiguous axial imaging was performed from the skull base to vertex without intravenous administration of contrast. This CT examination was performed using dose optimization techniques as appropriate, variously including the following: *Automated exposure control *Adjustment of mA and/or kV according to patient size (this includes techniques or standardized protocols for targeted exams where dose is matched to indication/reason for exam; i.e. extremities or head) *Use of iterative reconstruction technique DLP: 752 mGy-cm FINDINGS: Heterogeneous, predominantly low density masslike abnormality in the left frontal lobe measuring 5.5 x 3.5 cm (2:36). Otherwise, minaya-white matter differentiation is preserved. No evidence of acute intracranial hemorrhage. No evidence of midline shift or obstructive hydrocephalus. Prominent cavum septum pellucidum at vergae. No extra-axial collection. No acute soft tissue or osseous abnormalities. The mastoid air cells and paranasal sinuses are clear. 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 Recommend further evaluation with an MRI of the brain with and without IV contrast. This critical result was discussed with Dr. Cody at 09/18/2023 10:16 PM and it was ascertained that the content and urgency of the report was understood at the time of direct communication.
[2023-09-18 19:52] VITALS: BP 124/78; BP 127/69; PULSE 120; PULSE 122; RESP 31; O2SAT 94; O2SAT 96; BMI 39.9
--- NOTE | 2023-09-18 19:59 | ECG_ITS ---
Test Reason : SEIZURE Blood Pressure : / mmHG Vent. Rate : 126 BPM Atrial Rate : 126 BPM P-R Int : 132 ms QRS Dur : 072 ms QT Int : 316 ms P-R-T Axes : 065 063 034 degrees QTc Int : 457 ms Sinus tachycardia Nonspecific ST abnormality Abnormal ECG When compared with ECG of 19-SEP-2022 17:59, Vent. rate has increased BY 54 BPM Referred By: Sandra Cody Electronically Signed By:Bhavin Escobar
[2023-09-18] MEDS: 0.9 % Sodium Chloride 1,000 ML 999 ML IVCONT (20:33)
[2023-09-18 20:37] LABS: MANUAL DIFF FLAG NO
[2023-09-18 20:40] LABS: Basophils Absolute Auto 0.1 X10*3/uL (0.0-0.2); Basophils Percent Auto 0.4 % (0-2); Eosinophils Absolute Auto 0.1 X10*3/uL (0.0-0.4); Eosinophils Percent Auto 0.3 % (0-4); Hematocrit 42.5 % (37.0-47.0); Imm Gran Abs Auto 0.42 X10*3/uL (0.00-0.03); Imm Gran Pct Auto 2.1 % (0.0-0.4); Lymphocytes Absolute Auto 3.8 X10*3/uL (1.2-4.9); Lymphocytes Percent Auto 18.7 % (20-40); Mean Corpuscular HGB Conc 32.9 g/dl (31.0-35.0); Mean Corpuscular Hemoglobin 28.6 pg (27.0-33.0); Mean Corpuscular Volume 86.7 fL (80.0-98.0); Mean Platelet Volume 10.5 fL (9.4-12.3); Monocytes Absolute Auto 0.8 X10*3/uL (0.1-1.2); Monocytes Percent Auto 3.9 % (2-11); Neutrophils Percent Auto 74.6 % (45-73); Platelet Count 411 X10*3/uL (160-400); Red Cell Distribution Width 12.9 % (11.0-16.0); White Blood Count 20.2 X10*3/uL (4.8-10.8)
[2023-09-18 20:45] LABS: Prothrombin Time 11.8 SEC (11.1-13.3)
--- NOTE | 2023-09-18 20:45 | ED.SEIZURE ---
HPI - Seizure General Chief Complaint: Seizure Stated Complaint: MULTIPLE WIT SZ'S, CURRENTLY UNRESPONSIVE Time Seen by Provider: 09/18/23 19:58 Source: EMS Mode of arrival: EMS Limitations: no limitations History of Present Illness HPI Narrative: Patient comes to the emergency room via ambulance from home. According to EMS, patient had 3 witnessed seizures. One seizure at home which made the patient's sister called 911, and 2 witnessed seizures by EMS. Patient has never had seizures before. Patient's mother and sister are at bedside, both agree that the patient is usually very healthy, has never had seizures, does not use any drugs or drinks alcohol. En route to hospital, patient had 2 more tonic-clonic seizures, patient received 4 mg IM Versed by EMS. On arrival to the emergency room, patient was very somnolent, postictal. According to the patient's sister who witnessed the seizure. When patient had the 1st 1, patient hit the table pretty hard with her head. No lacerations, no bleeding. Seizure History: No Place: Home Related Data Previous Rx's Medication Instructions Recorded loperamide 2 mg capsule (Imodium 2 mg PO Q6H PRN loose stool #10 05/04/22 A-D) caps ibuprofen 100 mg/5 mL oral 200 mg (10 mL) PO Q6H PRN pain 09/19/22 suspension (Children's Motrin) #120 mL benzonatate 100 mg capsule 100 mg PO Q6H PRN cough #14 caps 12/31/22 cyclobenzaprine 10 mg tablet 10 mg PO Q8H #14 tabs 12/31/22 guaifenesin 100 mg/5 mL oral liquid 200 mg (10 mL) PO Q4H PRN 12/31/22 congestion #473 mL oxymetazoline 0.05 % nasal spray 2 spray intranasal Q12H PRN nasal 12/31/22 (Vicks Sinex 12-Hour) congestion 3 days #22 mL Allergies Allergy/AdvReac Type Severity Reaction Status Date / Time No Known Allergies Allergy Verified 05/03/22 16:43 Review of Systems Review of Systems: Yes Unobtainable due to mental condition PMFSH Past Medical History Medical History (Updated 09/18/23 @ 22:37 by Sandra Cody MD) Asthma Social History Social History Smoked in Last 30 Days: No Use of substances other than those prescribed or required for medical reasons: No Advance Directives: No Advance Directives Information Provided: No Patient : No Physical Exam Vital Signs: Vital Signs: Last Vital Signs Temp 97.9 F 09/18/23 23:48 Pulse 107 H 09/18/23 23:48 Resp 18 09/18/23 23:48 BP 131/76 09/18/23 23:48 Pulse Ox 98 09/18/23 23:48 O2 Del Method Room Air 09/18/23 23:48 BMI result Body Mass Index 39.9 Const: Other: Appearance: Somnolent, arousable, still postictal, gradually improving Eyes: Pupils equal, round and reactive to light. ENT: Pharynx normal. Neck: Normal inspection. Neck supple. No lymph nodes noted. No crepitus CVS: Normal heart rate and rhythm. Pulses normal. Normal S1 and S2 Respiratory: No respiratory distress. Breath sounds normal. No Wheezing. No rales Abdomen: Soft and nontender. No rigidity. No distention. Skin: Skin warm and dry. Normal skin color. Normal skin turgor. Extremities: No lower extremity edema. No Lacerations. No Rash Neuro: Cranial nerves 2-12 grossly intact, postictal Psych: calm, cooperative, still postictal Course Course Course Narrative: -all of patient's labs and imaging pending. -vitals are stable. -patient is on seizure precautions. The patient is awake, alert, talking to the patient's nurse, still confused/postictal Reevaluation(s) Reevaluation #1: Patient was signed out to me at change of shift pending transfer to a tertiary care center. The patient is a 23-year-old female who has no previous seizure history. She had a seizure at home and then 2 seizures with paramedics. She received 4 mg of midazolam IM from paramedics. Here in the emergency room she received IV levetiracetam. A head CT was done that shows a mass in the left frontal lobe. Given this finding we felt that the patient needed to be transferred to [facility] for further investigation and management. We contacted several [facility] for transfer but these were closed to transfer. We then contacted [facility] and the patient has been accepted in transfer to [facility]. The patient will be going to the emergency room there. The patient has not had any recurrent seizures since arriving in the emergency room here. Medications Administered Discontinued Medications Generic Name Dose Route Start Last Admin Trade Name Victor Manuel PRN Reason Stop Dose Admin Dexamethasone Sodium Phosphate 10 mg 09/18/23 22:01 09/18/23 22:25 Dexamethasone Sod Phosphate 10 Mg/Ml Vial IVPUSH 09/18/23 22:02 10 mg ONCE ONE Administration Sodium Chloride 1,000 mls @ 999 mls/hr 09/18/23 19:58 09/19/23 00:10 Ns IVCONT 09/18/23 20:58 Infused .Q1H1M ONE Infusion Sodium Chloride 1,000 mls @ 999 mls/hr 09/18/23 21:09 09/19/23 00:11 Ns IVCONT 09/18/23 22:09 999 mls/hr .Q1H1M ONE Administration Levetiracetam 1,500 mg in 100 mls @ 400 mls/hr 09/18/23 21:11 09/18/23 22:25 Keppra IV 09/18/23 21:25 Infused ONCE ONE Infusion Medical Decision Making Medical Decision Making MDM Narrative: -my interpretation of labs: patient's white blood cell count the lactic acid likely secondary to the seizure. Prior to the seizure, patient was in her usual state of health without any signs of infection. Sepsis is not suspected. Urine toxicology only positive for benzodiazepines, which she was given prior to arrival to the ED by EMS. Urinalysis negative for UTI, blood presents secondary to straight catheterization -patient receiving IV fluids, 1500 mg of IV Keppra -head CT pending -my interpretation of chest x-ray: No infiltrates -CT scan of the head my interpretation:, there seems to be a mass in the left frontal lobe. Patient was given 10 mg of dexamethasone IV. -I discussed the CT scan with Dr. 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 Patient denies any headache or neck pain. -patient needs to be transferred to a facility where they have your surgery and more specialized services for the patient's evaluation and treatment. -we tried [facility], [facility] and was to [place], [facility], [place], all close to transfers. -I discussed the patient with Dr. Hansen, patient will likely need to be transferred to [place] or another branch of [facility] in [place] Differential Diagnosis Differential Diagnoses: The differential diagnosis associated with the presentation includes (Epilepsy, convulsive syncope, hyponatremia, drug overdose) Admission/Observation Consideration of admission/observation: Escalation of care including admission/observation considered Consult Healthcare Provider Management of the patient was discussed with: Hospitalist Lab Data MDM Lab Attestation statement: I reviewed the patient's lab results. 09/18/23 20:30 09/18/23 20:30 Labs: Lab Results 09/18/23 09/18/23 09/18/23 Range/Units 20:30 20:31 20:54 WBC 20.2 H (4.8-10.8) X10*3/uL RBC 4.90 (4.20-5.50) X10*6/uL Hgb 14.0 (12.0-16.0) g/dl Hct 42.5 (37.0-47.0) % MCV 86.7 (80.0-98.0) fL MCH 28.6 (27.0-33.0) pg MCHC 32.9 (31.0-35.0) g/dl RDW 12.9 (11.0-16.0) % Plt Count 411 H D (160-400) X10*3/uL MPV 10.5 (9.4-12.3) fL Immature Gran % (Auto) 2.1 H (0.0-0.4) % Neut % (Auto) 74.6 H (45-73) % Lymph % (Auto) 18.7 L (20-40) % Hartley % (Auto) 3.9 (2-11) % Eos % (Auto) 0.3 (0-4) % Baso % (Auto) 0.4 (0-2) % Lymph # (Auto) 3.8 (1.2-4.9) X10*3/uL Hartley # (Auto) 0.8 (0.1-1.2) X10*3/uL Eos # (Auto) 0.1 (0.0-0.4) X10*3/uL Baso # (Auto) 0.1 (0.0-0.2) X10*3/uL Abs Immat Gran (auto) 0.42 H (0.00-0.03) X10*3/uL Absolute Neuts (auto) 15.0 H (2.0-8.3) x10*3/uL Absolute Nucleated RBC 0.000 (0.0-0.012) X10*3/uL Nucleated RBC % (auto) 0.0 (0.0-0.2) /100WBC PT 11.8 (11.1-13.3) SEC INR 1.0 (0.9-1.1) Sodium 139 (135-145) mmol/L Potassium 3.6 (3.3-5.1) mmol/L Chloride 104 (96-108) mmol/L Carbon Dioxide 16 L (22-29) mmol/L Anion Gap 23 H (12-20) BUN 14 (9-16) mg/dL Creatinine 1.03 (0.5-1.4) mg/dL Estim Creat Clear Calc 103.3 Estimated GFR > 60 Random Glucose 170 H (60-115) mg/dL Lactic Acid 9.6 H* (0.5-2.0) mmol/L Calcium 9.6 (8.4-10.2) mg/dL Magnesium 2.2 (1.6-2.6) mg/dL Total Bilirubin 0.2 (0.0-1.0) mg/dL Direct Bilirubin < 0.2 (0.0-0.5) mg/dL AST 24 (5-31) U/L ALT 32 H (0-31) U/L Alkaline Phosphatase 106 (39-117) U/L Troponin I High Sens < 2.7 (<3.5-17.0) ng/L Total Protein 8.4 H (6.5-8.0) g/dL Albumin 4.2 (3.5-5.0) g/dL Beta HCG, Quant < 2 mIU/mL Urine Color Yellow Urine Appearance Clear Urine pH 5.0 (5.0-9.0) Ur Specific Violet 1.015 (1.005-1.025) Urine Protein 100 (2+) H (Neg-Trace) mg/dL Urine Glucose (UA) Negative (Negative) mg/dL Urine Ketones Trace (Negative) mg/dL Urine Blood Trace H (Negative) Urine Nitrite Negative (Negative) Ur Leukocyte Esterase Negative (Negative) Urine RBC 0-2 (0-2) /HPF Urine WBC 0-5 (0-5) /HPF Ur Squamous Epith Cells 3-5 (0-2) /HPF Urine Bacteria None Seen (None Seen) Hyaline Casts 3-5 (0-2) /LPF Salicylates < 5.0 L (15-30) mg/dL Urine Opiates Screen Not Detected (Not Detect) Urine Fentanyl Screen Not Detected (Not Detect) Acetaminophen < 3 (<30) mcg/mL Ur Barbiturates Screen Not Detected (Not Detect) Ur Phencyclidine Scrn Not Detected (Not Detect) Ur Amphetamines Screen Not Detected (Not Detect) U Benzodiazepines Scrn POSITIVE H (Not Detect) Urine Cocaine Screen Not Detected (Not Detect) U Marijuana (THC) Screen Not Detected (Not Detect) Ethyl Alcohol < 10 mg/dL COVID-19 (GREGG) Negative (Negative) COVID-19 Clin Com See Note Independent Interpretation I performed an independent interpretation of an: EKG (My interpretation of EKG: Normal sinus rhythm, heart rate 26, no ST Segment depression or elevation, no T-wave inversion, QTC 457), Plain X-Ray and CT Scan Radiology Impression Discussion of test interpretation with radiology: I have reviewed the radiologist's reading. Radiologist Impression: No significant abnormality is noted involving the heart, lungs, mediastinum, bony thorax or soft tissues. Lung volumes are mildly diminished. XR/XR chest 1V IMPRESSION: Unremarkable examination. FINDINGS: Heterogeneous, predominantly low density masslike abnormality in the left frontal lobe measuring 5.5 x 3.5 cm (2:36). Otherwise, minaya-white matter differentiation is preserved. No evidence of acute intracranial hemorrhage. No evidence of midline shift or obstructive hydrocephalus. Prominent cavum septum pellucidum at vergae. No extra-axial collection. No acute soft tissue or osseous abnormalities. The mastoid air cells and paranasal sinuses are clear. CT/CT head/brain wo IV con IMPRESSION: Left frontal lobe mass measuring up to 5.5 cm suspicious for a primary DOCTOR [employer] OPTOMETRY neoplasm. Recommend further evaluation with an MRI of the brain with and without IV contrast. Independent Historian Clinical information obtained from an independent historian. History obtained from or confirmed by: Parent and Other (Sister) Critical Care Time Critical Care Time Critical Care Time: Yes Total Critical Care Time: 60 Attestation: I have personally provided critical care time. Time includes review of lab data, radiology results, discussion with consultants, and monitoring for potential decompensation. Intervention performed as documented. Discharge Plan Discharge Clinical Impression: Brain neoplasm, Generalized seizure Patient Disposition: [facility] Prescriptions: No Action loperamide [Imodium A-D] 2 mg capsule 2 mg PO Q6H PRN (Reason: loose stool) Qty: 10 0RF ibuprofen [Children's Motrin] 100 mg/5 mL suspension 200 mg PO Q6H PRN (Reason: pain) Qty: 120 0RF cyclobenzaprine 10 mg tablet 10 mg PO Q8H Qty: 14 0RF benzonatate 100 mg capsule 100 mg PO Q6H PRN (Reason: cough) Qty: 14 0RF oxymetazoline [Vicks Sinex 12-Hour] 0.05 % spray,non-aerosol 2 spray intranasal Q12H PRN (Reason: nasal congestion) 3 Days Qty: 22 0RF guaifenesin 100 mg/5 mL liquid 200 mg PO Q4H PRN (Reason: congestion) Qty: 473 0RF
[2023-09-18 20:52] LABS: IDNOW Serial# 08D9AD1C
[2023-09-18 20:53] LABS: COVID-19 Test Negative (Negative)
[2023-09-18 20:54] LABS: Acetaminophen LAB < 3 mcg/mL (<30); Salicylate < 5.0 mg/dL (15-30)
[2023-09-18 20:56] LABS: Ethanol < 10 mg/dL
--- NOTE | 2023-09-18 20:57 | MHC.EDTECH ---
Labs, blood cultures ,Uacc,and Covid were obtained and sent to lab, 250MLS of urine from straight cath. Family at bedside and call sánchez within reach
[2023-09-18 20:59] LABS: Lactic Acid 9.6 mmol/L (0.5-2.0)
[2023-09-18 21:01] LABS: Alanine Aminotransferase 32 U/L (0-31); Albumin Level 4.2 g/dL (3.5-5.0); Alkaline Phosphatase 106 U/L (39-117); Anion Gap 23 (12-20); Aspartate Amino Transferase 24 U/L (5-31); Bilirubin Direct < 0.2 mg/dL (0.0-0.5); Bilirubin Total 0.2 mg/dL (0.0-1.0); Blood Urea Nitrogen 14 mg/dL (9-16); Calcium 9.6 mg/dL (8.4-10.2); Carbon Dioxide 16 mmol/L (22-29); Chloride 104 mmol/L (96-108); Creatinine Clr Calc Pharmacy 103.3; Estimated Glomerular Filt Rate > 60; Glucose Random 170 mg/dL (60-115); HCG Quantitative < 2 mIU/mL; Magnesium 2.2 mg/dL (1.6-2.6); Potassium 3.6 mmol/L (3.3-5.1); Sodium 139 mmol/L (135-145); Total Protein 8.4 g/dL (6.5-8.0)
[2023-09-18 21:02] LABS: Appearance Urine Clear; Color Urine Yellow; Glucose Urine UA Negative (Negative); Leukocyte Esterase Urine Negative (Negative); Nitrite Urine Negative (Negative); Specific Gravity - Urine 1.015 (1.005-1.025); UMIC TRIGGER UACC YES; Urine Blood Trace (Negative); Urine Ketones Trace mg/dL (Negative); Urine Protein 100 (2+) mg/dL (Neg-Trace)
[2023-09-18 21:03] LABS: Troponin-I High Sensitivity < 2.7 ng/L (<3.5-17.0)
--- NOTE | 2023-09-18 21:06 | PC.NURSE ---
pt awake at this time. reports she does not know what happened today. understands she is in the hospital now. family at bedside. labs and urine collected and sent.
[2023-09-18 21:13] LABS: Amphetamine Screen Urine Not Detected (Not Detect); Barbiturates, Urine Not Detected (Not Detect); Benzodiazepines Screen Urine POSITIVE (Not Detect); Cannabinoid Screen Urine Not Detected (Not Detect); Cocaine Screen Urine Not Detected (Not Detect); Fentanyl, urine Not Detected (Not Detect); Opiate Screen Urine Not Detected (Not Detect); Phencyclidine Screen Urine Not Detected (Not Detect)
[2023-09-18 21:25] VITALS: TEMP 36.5
[2023-09-18 21:30] LABS: Bacteria Urine None Seen (None Seen); RBC Urine 0-2 /HPF (0-2); WBC Urine 0-5 /HPF (0-5)
[2023-09-18] MEDS: levETIRAcetam in NaCl (iso-os) 1,500 MG/100 ML PIGGYBACK 400 MG IV (21:41)
[2023-09-18 22:01] VITALS: BP 132/80; PULSE 102; RESP 18; TEMP 36.6; O2SAT 98
--- NOTE | 2023-09-18 22:03 | MHC.EDTECH ---
Hourly rounds and vitals completed,Belonging list completed and copy placed in chart. Family at bedside and call sánchez within reach
[2023-09-18] MEDS: dexAMETHasone sod phosphate 10 MG/ML VIAL IVPUSH (22:25)
--- NOTE | 2023-09-18 22:33 | PC.NURSE ---
okayed pt to have ice chips, pt had a few, then vomited after. food and minimal blood noted in emesis. previously bit tongue during seizure episode
[2023-09-18 22:35] LABS: Reflex Lactate? Lactic Acid Added
--- NOTE | 2023-09-18 22:47 | MHC.EDTECH ---
CALLED [facility] [place] LINE @[phone] PER REQUEST, [facility] DENIED [place].
--- NOTE | 2023-09-18 22:48 | MHC.EDTECH ---
CALLED [facility] [place] LINE @[phone]. [facility] DENIED [place]
--- NOTE | 2023-09-18 22:50 | MHC.EDTECH ---
CALLED [facility] LINE @[phone]. TOOK CALL. WAITING CALL BACK FOR ACCEPT/DENY STATUS
--- NOTE | 2023-09-18 23:40 | MHC.EDTECH ---
is canceling the repeat lactic he gave this tech a verbal order not to re draw the patient,Cindi UREÑA and Lab were made aware
[2023-09-18 23:48] VITALS: BP 131/76; PULSE 107; RESP 18; TEMP 36.6; O2SAT 98
--- NOTE | 2023-09-18 23:49 | MHC.EDTECH ---
This tech assisted patient to commode,pt had a steady gait,urinated a large amount inez-care given, Hourly rounds and vitals completed.
[2023-09-19] MEDS: 0.9 % Sodium Chloride 1,000 ML 999 ML IVCONT (00:11)
--- NOTE | 2023-09-19 00:21 | MHC.EDTECH ---
Faxed over facesheet to [facility] at Transfer line @[phone]
--- NOTE | 2023-09-19 00:22 | MHC.EDTECH ---
Nurse to nurse [phone]
[2023-09-19 00:45] VITALS: BP 131/67; PULSE 109; RESP 20; O2SAT 96
--- NOTE | 2023-09-19 00:47 | PC.NURSE ---
EMS here for transport to [facility].
--- NOTE | 2023-09-19 01:21 | PC.NURSE ---
Nurse to Nurse report given to [facility] Triage Nurse
== END 2023-09-19 01:33 | disposition short-term general hospital (02) ==
PROVIDERS: Emergency Medicine; Emergency Provider Emergency Medicine
DX: R56.9 Unspecified convulsions (principal); R51.9 Headache, unspecified; M54.2 Cervicalgia; R00.0 Tachycardia, unspecified; Z11.52 Encounter for screening for COVID-19; Z20.822 Contact with and (suspected) exposure to COVID-19; Z79.899 Other long term (current) drug therapy
CPT/HCPCS: 36415; 70450; 71045; 80048; 80076; 80143; 80179; 80307; 81001; 81003; 83605; 83735; 84484; 84702; 85025; 85610; 87040; 87635; 93005; 96361; 96374; 96375; 99285; J1100; J1953

== ENCOUNTER → 2023-09-18 19:59 | Outpatient (BNV) | payer MEDICAID, SELFPAY | PROVIDERS: Emergency Provider Emergency Medicine; Visit Provider Internal Medicine Cardiovascular Disease | DX: R00.0 Tachycardia, unspecified (principal); R94.31 Abnormal electrocardiogram [ECG] [EKG] | CPT/HCPCS: 93010 ==